=== PATIENT | female | born 1970 | race Caucasian/White ===

== ENCOUNTER 2018-03-20 12:42 | Emergency (ER) | payer MEDICAID, OTHER ==
[~2018-03-20] VITALS: Ht 157.5 cm; Wt 66.2 kg
[2018-03-20 12:50] VITALS: BP_SYST 163
[2018-03-20 14:15] VITALS: BP_SYST 146
== END 2018-03-20 14:15 | disposition home or self-care (01) ==
LOC: SED 12:42
DX: G44.209 Tension-type headache, unspecified, not intractable (principal); H93.12 Tinnitus, left ear; F17.200 Nicotine dependence, unspecified, uncomplicated; I10 Essential (primary) hypertension
CPT/HCPCS: 99283